=== PATIENT | female | born 1965 | race African-American/Black ===

== ENCOUNTER 2023-06-14 11:03 | Emergency (ER) | payer MEDICAID ==
[~2023-06-14] VITALS: Ht 165.1 cm; Wt 66.0 kg
[2023-06-14 11:18] VITALS: O2SAT 100
[2023-06-14] MEDS ORDERED: P-EP-91 MT (12:48)
[2023-06-14] MEDS ORDERED: FLUT9.9S BOTHNSTRLS (12:48)
[2023-06-14] MEDS ORDERED: DIPHENHYDRAMINE 50MG CAPSULE PO ONE (13:00)
[2023-06-14] MEDS: DIPHENHYDRAMINE 25MG CAPSULE PO NR (13:37)
[2023-06-14] MEDS: DEXAMETHASONE 4MG/ML 1ML VIAL IM ONE (13:37)
[2023-06-14 13:39] VITALS: BP 122/82; PULSE 78; RESP 20; TEMP 98.1
== END 2023-06-14 13:40 | disposition home or self-care (01) ==
LOC: ER 11:03
DX: J32.9 Chronic sinusitis, unspecified (principal)
CPT/HCPCS: 99283; 71045; 96372; Q0163; J1100

== ENCOUNTER 2023-08-15 15:07 | Emergency (ER) | payer MEDICAID ==
[~2023-08-15] VITALS: Ht 165.1 cm; Wt 66.0 kg
[~2023-08-15 15:07] MED LIST: FLUT9.9S BOTHNSTRLS; P-EP-91 MT
[2023-08-15 15:10] VITALS: O2SAT 100
[2023-08-15] MEDS: ACETAMINOPHEN 325MG TABLET PO ONE (17:02)
[2023-08-15 17:22] VITALS: BP 144/81; PULSE 90; RESP 16; TEMP 98
[2023-08-15] MEDS: IBUPROFEN 400MG TABLET PO ONE (17:22)
== END 2023-08-15 18:06 | disposition home or self-care (01) ==
LOC: ER 15:07
DX: R52 Pain, unspecified (principal); Z98.890 Other specified postprocedural states; Z98.51 Tubal ligation status
CPT/HCPCS: 71045; 73110; 73130; 73560; 99284